=== PATIENT | male | born 1940 | race Caucasian/White ===

== ENCOUNTER 2017-05-15 08:09 | Emergency (ER) | payer OTHER ==
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
[2017-05-15] MEDS ORDERED: NO MEDICATIONS (08:14)
== END 2017-05-15 09:05 | disposition home or self-care (01) ==
LOC: SED 08:09
DX: S46.812A Strain of other muscles, fascia and tendons at shoulder and upper arm level, left arm, initial encounter (principal); S16.1XXA Strain of muscle, fascia and tendon at neck level, initial encounter; V49.00XA Driver injured in collision with unspecified motor vehicles in nontraffic accident, initial encounter; Y92.410 Unspecified street and highway as the place of occurrence of the external cause
CPT/HCPCS: 73030; 99284